=== PATIENT | female | born 1940 | race African-American/Black ===

== ENCOUNTER 2017-08-07 17:46 | Emergency (ER) | payer MEDICARE, BC ==
[~2017-08-07] VITALS: Ht 172.7 cm; Wt 146.0 kg
[~2017-08-07 17:46] MED LIST: ALLO300T2 PO; AMLO2.5T45 PO; ATEN100T PO; LOSA100T14 PO; METF500T4 PO
[2017-08-07] MEDS ORDERED: ONDANSETRON HCL 4MG/2ML VIAL IV STA (18:59)
[2017-08-07] MEDS ORDERED: SODIUM CHLORIDE 0.9% 1,000 ML IV ONE (18:59)
[2017-08-07] MEDS ORDERED: MORPHINE SULFATE 4 MG/ML CPJ (NOT FOR IM USE) IV STA (18:59)
[2017-08-07 19:07] VITALS: BP 185/72
[2017-08-07 19:29] LABS: CHLORIDE 106 mEq/L (98-107)
[2017-08-07 19:30] LABS: PARTIAL THROMBOPLASTIN TIME 25.3 sec (23.4-31.0); PROTHROMBIN TIME 10.6 sec (9.4-11.6)
[2017-08-07 19:31] LABS: BASOPHILS % 0.9 % (0.0-2.0); HEMATOCRIT. 38.9 % (36.0-48.0); HEMOGLOBIN. 13.3 g/dL (12.0-16.0); LYMPHOCYTES % 28.7 % (20.0-50.0); MEAN PLATELET VOLUME 9.4 fl (7.4-10.4); MONOCYTES % 8.5 % (2.0-8.0); NEUTROPHILS % 57.9 % (40.0-76.0); PLATELET 153 x1000/uL (130-400); RED BLOOD CELL COUNT 4.74 mill/uL (4.2-5.4); RED CELL DISTRIBUTION WIDTH 14.9 % (11.6-14.6)
[2017-08-07 19:34] LABS: CARBON DIOXIDE 29 mEq/L (21-32)
[2017-08-07 20:35] LABS: CLARITY URINE CLEAR (CLEAR); COLOR URINE YELLOW (YELLOW); GLUCOSE URINE NEGATIVE (NEGATIVE); KETONES URINE NEGATIVE (NEGATIVE); LEUKOCYTE ESTERASE URINE 1+ (NEGATIVE); NITRITE URINE NEGATIVE (NEGATIVE); OCCULT BLOOD URINE NEGATIVE (NEGATIVE); PH URINE 6.5 (4.5-8.0); PROTEIN URINE NEGATIVE (NEGATIVE); SPECIFIC GRAVITY URINE 1.013 (1.005-1.030)
[2017-08-07] MEDS ORDERED: CEFTRIAXONE 1 G PREMIX 50 ML IV ONE (21:15)
== END 2017-08-07 22:30 | disposition home or self-care (01) ==
LOC: ER 18:08
DX: N39.0 Urinary tract infection, site not specified (principal); I10 Essential (primary) hypertension; E27.8 Other specified disorders of adrenal gland
CPT/HCPCS: 36415; 71010; 73502; 74176; 80053; 81001; 83690; 85025; 85610; 85730; 93005; 96361; 96365; 96375; 99285; J0696; J2270; J2405; J7030